=== PATIENT | female | born 1995 | race Caucasian/White ===

== ENCOUNTER → 2021-10-29 09:24 | Outpatient (CLI) | payer MEDICARE, SELFPAY | LOC: PSN 09:31 | DX: R11.2 Nausea with vomiting, unspecified (principal); R19.7 Diarrhea, unspecified; J06.9 Acute upper respiratory infection, unspecified; Z20.822 Contact with and (suspected) exposure to COVID-19 | CPT/HCPCS: 87426; 87804; 87807; C9803 ==

== ENCOUNTER 2023-08-14 12:37 | Emergency (ER) | payer OTHER, SELFPAY ==
[2023-08-14 12:38] VITALS: BP 150/109; PULSE 93; RESP 14; TEMP 36.8; O2SAT 96; BMI 49.1
--- NOTE | 2023-08-14 12:46 | ED.VIS.FEGU ---
HPI <TRACY Yancey - Last Filed: 08/14/23 13:55> HPI - Female History of Present Illness Chief Complaint: Vag Bleeding Narrative Narrative: 28-year-old female states she had BV in June and was scratching her vagina and thinks she may have caused a cut. Over the last 3 days she has had bleeding which became heavier yesterday and she is changing her pad 4 times a day. No clots. She states it does not smell like her usual. And smells like iron. Her looked at the area and saw a cut. She states she is not due to start her menstrual cycle for another 3 to 4 days and she is typically regular. She is not on control. She is also having pain with urination. PFSH <TRACY Yancey - Last Filed: 08/14/23 13:55> PFSH Allergy/AdvReac Type Severity Reaction Status Date / Time No Known Allergies Allergy Verified 08/14/23 12:38 Social History Smoking Status: Never smoker ROS <TRACY Yancey - Last Filed: 08/14/23 13:55> ROS ED ROS Narrative Constitutional: Negative for fever, chills, malaise. CVS: Negative for chest pain, syncope. Respiratory: Negative for shortness of breath. GI: Negative for abdominal pain, nausea, vomiting. : Positive for dysuria. EXAM <TRACY Yancey - Last Filed: 08/14/23 13:55> Physical Exam Narrative Exam Narrative: CONST: Patient sitting in no acute distress. EYES: Normal inspection. NECK: Normal inspection. RESP: No respiratory distress, CTAB. CVS: Regular rate and rhythm, no murmur, no gallop. ABD: Soft and nontender, no guarding or rebound. Pelvic: Normal external genitalia, on right inner lower labia there is a very superficial 1 cm scratch, no lacerations. Normal vaginal vault with small amount of bright red blood, normal cervical os, no clots. No rashes or lesions noted. SKIN: Color normal, no rash, warm, dry, intact. EXTREMITIES: Normal appearance, no pedal edema. NEURO: Oriented x4. PSYCH: Normal affect. Const Vital Signs: 08/14/23 12:38 Temperature 98.3 F Temperature Source Temporal Pulse Rate 93 Respiratory Rate 14 Blood Pressure 150/109 H Blood Pressure Mean 122 Pulse Ox 96 Oxygen Delivery Method Room Air <Dr. Jack De Oliveira DO - Last Filed: 08/14/23 15:40> Physical Exam Const Vital Signs: 08/14/23 12:38 Temperature 98.3 F Temperature Source Temporal Pulse Rate 93 Respiratory Rate 14 Blood Pressure 150/109 H Blood Pressure Mean 122 Pulse Ox 96 Oxygen Delivery Method Room Air [facility] <TRACY Yancey - Last Filed: 08/14/23 13:55> [facility] Narrative Medical decision making narrative: History gathered from: Patient and spouse Patient was concerned for abnormal vaginal bleeding. She appears well and nontoxic. Vital signs stable. Abdomen soft and nontender. Pelvic and pelvic exam she has a 1 cm superficial abrasion in the right inner labia That is closed and too small to be bleeding the amount she is reporting. She does have bright red blood in the vaginal vault with a normal cervical os. No clots. There is no hemorrhaging. UA has no evidence of infection and test is negative. Her LMP was July 15 so I suspect this is either normal menstrual cycle or dysfunctional uterine bleeding. I provided an TRANSIT VEHICLE INSPECTOR referral and she was discharged in stable condition. Lab Data Attestation: I reviewed the patient's lab results. Labs: Laboratory Results - last 24 hr 08/14/23 13:17 Urine Color Yellow Urine Clarity Sl. Cloudy Urine pH 6.0 Ur Specific [place] 1.025 Urine Protein 30 H Urine Glucose (UA) Normal Urine Ketones 5 H Urine Occult Blood 250 H Urine Nitrite Negative Urine Bilirubin Negative Urine Urobilinogen 1 H Ur Leukocyte Esterase 25 H Urine RBC > 100 SEEN Urine WBC 0 SEEN Ur Squamous Epith Cells 0 SEEN Urine Bacteria 0 SEEN Urine Mucus 0 SEEN Urine Test Negative <Dr. Jack De Oliveira, - Last Filed: 08/14/23 15:40> [facility] Narrative Medical decision making narrative: History gathered from: Patient and spouse Patient was concerned for abnormal vaginal bleeding. She appears well and nontoxic. Vital signs stable. Abdomen soft and nontender. Pelvic and pelvic exam she has a 1 cm superficial abrasion in the right inner labia That is closed and too small to be bleeding the amount she is reporting. She does have bright red blood in the vaginal vault with a normal cervical os. No clots. There is no hemorrhaging. UA has no evidence of infection and test is negative. Her LMP was July 15 so I suspect this is either normal menstrual cycle or dysfunctional uterine bleeding. I provided an TRANSIT VEHICLE INSPECTOR referral and she was discharged in stable condition. Attending note: Patient seen and evaluated with global account director. I perform my own [id number] evaluation. I agree with the plan of work-up. Concerns for vaginal bleeding starting yesterday. Recent BV states she is scratching had an abrasion. States had burning where the injury is when she urinates. Denies any discharge. Her last menstrual period was the end of June, she states her calendar tells her she is due in a few days and not yesterday. However she states she has normal periods monthly. Examined by global account director blood in the vault, is abrasion reported externally there is no active bleeding. hCG obtained negative urine with 25 leukocytes with blood however she is having vaginal bleeding. She is reassured to monitor the bleeding outpatient follow-up given with gynecology. Lab Data Labs: Laboratory Results - last 24 hr 08/14/23 13:17 Urine Color Yellow Urine Clarity Sl. Cloudy Urine pH 6.0 Ur Specific [place] 1.025 Urine Protein 30 H Urine Glucose (UA) Normal Urine Ketones 5 H Urine Occult Blood 250 H Urine Nitrite Negative Urine Bilirubin Negative Urine Urobilinogen 1 H Ur Leukocyte Esterase 25 H Urine RBC > 100 SEEN Urine WBC 0 SEEN Ur Squamous Epith Cells 0 SEEN Urine Bacteria 0 SEEN Urine Mucus 0 SEEN Urine Test Negative Discharge Plan Triage Chief Complaint: Vag Bleeding ED Midlevel Provider: Lilliam Guthrie ED Provider: Jack De Oliveira Dx/Rx/DC Orders Clinical Impression: Dysfunctional uterine bleeding Instructions: ED Dysfunctional Uterine Bleeding Primary Care Provider: Jaja Poe NP Referrals: Elva Ngo DO [Med Staff - Active Staff] - Jaja Poe NP, TEACHER EDUCATION DIRECTOR-C [Primary Care Provider] - Activity Restrictions/Additional Instructions: Your urine shows no evidence of a urinary tract infection and test is negative. This is either your regular menstrual cycle or dysfunctional uterine bleeding which is when you have abnormal periods. Please follow-up with TRANSIT VEHICLE INSPECTOR. Disposition Disposition: Home, Self Care Discharge Date/Time: 08/14/23 13:57
[2023-08-14 13:21] LABS: Bacteria 0 SEEN /hpf (None Seen); Mucous, Urine 0 SEEN /hpf (<or=2+); Squamous Epithelial Cells - UA 0 SEEN /hpf (5-10); White Blood Cells 0 SEEN /hpf (0-5)
[2023-08-14 13:26] LABS: Color, Urine Yellow (Yellow); Glucose, Dipstick Normal (Normal); Ketone-Dipstick 5 mg/dl (Negative); Leukocyte Esterase-Dipstick 25 /ul (Negative); Nitrite-Dipstick Negative (Negative); Occult Blood-Urine 250 /ul (Negative); Protein-Dipstick 30 mg/dl (Negative); Specific Gravity, Urine 1.025 (1.002-1.030); Urine Bilirubin Dipstick Negative (Negative); Urine Clarity Sl. Cloudy (Clear); Urine Urobilinogen 1 mg/dl (Normal)
--- OUTSIDE RECORDS SUMMARY | 2023-08-14 13:31 | XMS RPT_ITS | CCD ---
Author Name Unknown Address [address] [place] [address] Organization [facility] Care Team Providers Care Finance Lecturer Name Role Phone Unavailable Primary Care Provider River Pierce MD, Milli Maynard Primary Care Provider Unavailable Primary Care Provider LILLIAM Lowe Attending Unavailable SHAGGY WILSON Attending Unavailable MILLI PIERCE Primary Care Unavailable AUDREY BRYANT Attending Unavailable MILLI PIERCE Primary Care Unavailable AUDREY BRYANT Attending Unavailable MILLI PIERCE Primary Care Unavailable Medications Current Medications Medication Drug Class(es) Dates Sig (Normalized) Sig (Original) amoxicillin 875 mg oral tablet (1 source) Penicillin-class Antibacterial Start: 06-08-2023 End: 06-18-2023 take 1 tablet by mouth twice daily amoxicillin (AMOXIL) 875 mg tablet Indications: Dysuria Take 1 tablet by mouth two times a day for 10 days. 20 tablet 0 06/08/2023 06/18/2023 Active Completed/Discontinued Medications Medication Drug Class(es) Dates Sig (Normalized) Sig (Original) benzonatate 100 mg oral capsule (1 source) Non-narcotic Antitussive Start: 09-27-2022 End: 06-08-2023 take 2 capsules by mouth every eight hours as needed for cough and cough benzonatate (TESSALON PERLES) 100 mg capsule Indications: Subacute cough Take 2 capsules by mouth three times daily as needed for cough. 30 capsule 0 09/27/2022 06/08/2023 Discontinued Problems Active Problems Problem Classification Problem Date Documented Date Episodic/Chronic Anxiety disorders (11 sources) Anxiety; Translations: [Anxiety disorder, unspecified] Onset: 07-03-2020 05-31-2022 Chronic Bacterial infection; unspecified site (2 sources) Other specified bacterial agents as the cause of diseases classified elsewhere; Translations: [Other specified bacterial agents as the cause of diseases classified elsewhere] Onset: 07-28-2023 Episodic Chronic obstructive pulmonary disease and bronchiectasis (1 source) Bronchitis, not specified as acute or chronic; Translations: [Sinobronchitis] Onset: 06-08-2023 Episodic Diabetes or abnormal glucose tolerance complicating ; childbirth; or the puerperium (9 sources) History of gestational diabetes mellitus; Translations: [Personal history of gestational diabetes] Onset: 12-01-2017 05-31-2022 Episodic Genitourinary symptoms and ill-defined conditions (2 sources) Dysuria; Translations: [Dysuria] Onset: 06-08-2023 06-08-2023 Episodic Immunizations and screening for infectious disease (12 sources) Patient encounter status; Translations: [Encounter for screening for human immunodeficiency virus [HIV]] Onset: 07-28-2023 07-28-2023 Episodic Inflammatory diseases of female pelvic organs (3 sources) Bacterial vaginosis; Translations: [Acute vaginitis] Onset: 07-28-2023 07-28-2023 Episodic Mood disorders (15 sources) Depressive disorder; Translations: [Depression] Onset: 12-01-2017 05-31-2022 Chronic Mood disorders (7 sources) Mood disorders; Translations: [Depression, unspecified] Onset: 05-31-2022 Resolved: 07-28-2023 06-01-2023 Other nutritional; endocrine; and metabolic disorders (7 sources) Body mass index 40+ - severely obese; Translations: [Body mass index (BMI) 50.0-59.9, adult] Onset: 08-18-2021 05-31-2022 Chronic Other nutritional; endocrine; and metabolic disorders (2 sources) Morbid (severe) obesity due to excess calories; Translations: [Morbid (severe) obesity due to excess calories (HCC)] Onset: 07-28-2023 Chronic Other nutritional; endocrine; and metabolic disorders (2 sources) Body mass index (BMI) 45.0-49.9, adult; Translations: [Body mass index (BMI) 45.0-49.9, adult (HCC)] Onset: 07-28-2023 Chronic Other screening for suspected conditions (not mental disorders or infectious disease) (8 sources) Encounter for screening for malignant neoplasm of cervix; Translations: [Encounter for screening for diabetes mellitus] Onset: 07-28-2023 Episodic Other upper respiratory infections (2 sources) Chronic sinusitis; Translations: [Chronic sinusitis, unspecified] Onset: 06-08-2023 06-08-2023 Chronic Unclassified (1 source) Subacute cough; Translations: [Subacute cough] Onset: 09-27-2022 Past or Other Problems Problem Classification Problem Date Documented Da te Episodic/Chronic Menstrual disorders (6 sources) Irregular periods; Translations: [Irregular menstruation, unspecified] Onset: 12-01-2017 Resolved: 07-28-2023 05-31-2022 Chronic Nonmalignant breast conditions (6 sources) Abscess of breast; Translations: [Abscess of the breast and nipple] Onset: 06-25-2022 Resolved: 07-28-2023 06-25-2022 Episodic Other upper respiratory infections (1 source) Acute upper respiratory infection, unspecified; Translations: [Viral upper respiratory tract infection] Onset: 09-27-2022 Episodic Results Test Name Value Interpretation Reference Range Facil ity Vital Signs Date Time Vital Sign Value Performing Clinician Faci lity 07-28-2023 09:44-0500 Body height 170.2 cm Audrey Bryant APRN [employer] Work Phone: [facility] 07-28-2023 09:44-0500 Body mass index (BMI) [Ratio] 49.49 kg/m2 Audrey Bryant EQUITY STRUCTURER [employer] Work Phone: [facility] 07-28-2023 09:44-0500 Body weight 143.34 kg Audrey Bryant EQUITY STRUCTURER [employer] Work Phone: [facility] 07-28-2023 09:44-0500 Diastolic blood pressure 70 mm[Hg] Audrey Bryant EQUITY STRUCTURER [employer] Work Phone: [facility] 07-28-2023 09:44-0500 Heart rate 70 /min Audrey Bryant EQUITY STRUCTURER [employer] Work Phone: [facility] 07-28-2023 09:44-0500 SaO2% (BldA) [Mass fraction] 97 % Audrey Bryant EQUITY STRUCTURER - CUTTING ROOM SUPERVISOR Work Phone: [facility] [employer] 07-28-2023 09:44-0500 Systolic blood pressure 116 mm[Hg] Audrey Bryant EQUITY STRUCTURER - CUTTING ROOM SUPERVISOR Work Phone: [facility] [employer] 07-28-2023 09:43-0500 Body height 170.2 cm Audrey Bryant EQUITY STRUCTURER - CUTTING ROOM SUPERVISOR Work Phone: [facility] [employer] 07-28-2023 09:43-0500 Body mass index (BMI) [Ratio] 49.49 kg/m2 Audrey Bryant EQUITY STRUCTURER - CUTTING ROOM SUPERVISOR Work Phone: [facility] [employer] 07-28-2023 09:43-0500 Body weight 143.34 kg Audrey Bryant EQUITY STRUCTURER - CUTTING ROOM SUPERVISOR Work Phone: [facility] [employer] 07-28-2023 09:43-0500 Diastolic blood pressure 70 mm[Hg] Audrey Bryant EQUITY STRUCTURER - CUTTING ROOM SUPERVISOR Work Phone: [facility] [employer] 07-28-2023 09:43-0500 Heart rate 70 /min Audrey Bryant EQUITY STRUCTURER - CUTTING ROOM SUPERVISOR Work Phone: [facility] [employer] 07-28-2023 09:43-0500 SaO2% (BldA) [Mass fraction] 97 % Audrey Bryant EQUITY STRUCTURER - CUTTING ROOM SUPERVISOR Work Phone: [facility] [employer] 07-28-2023 09:43-0500 Systolic blood pressure 116 mm[Hg] Audrey Bryant EQUITY STRUCTURER - CUTTING ROOM SUPERVISOR Work Phone: [facility] 06-08-2023 15:29-0400 Body temperature 97.7 [degF] Lilliam Shepherd DO Work Phone: [facility] 06-08-2023 15:29-0400 Diastolic blood pressure 91 mm[Hg] Lilliam Shepherd DO Work Phone: [facility] 06-08-2023 15:29-0400 Heart rate 99 /min Lilliam Shepherd DO Work Phone: [facility] 06-08-2023 15:29-0400 Respiratory rate 20 /min Lilliam Shepherd DO Work Phone: [facility] 06-08-2023 15:29-0400 SaO2% (BldA) [Mass fraction] 97 % Lilliam Shepherd DO Work Phone: [facility] 06-08-2023 15:29-0400 Systolic blood pressure 148 mm[Hg] Lilliam Shepherd DO Work Phone: [facility] 06-01-2023 14:05-0400 Body mass index (BMI) [Ratio] 51.33 kg/m2 Shaggy Bridenthal EQUITY STRUCTURER - CUTTING ROOM SUPERVISOR Work Phone: [facility] 06-01-2023 14:05-0400 Body temperature 97.7 [degF] Shaggy Bridenthal EQUITY STRUCTURER - CUTTING ROOM SUPERVISOR Work Phone: [facility] 06-01-2023 14:05-0400 Body weight 144.24 kg Shaggy Bridenthal EQUITY STRUCTURER - CUTTING ROOM SUPERVISOR Work Phone: [facility] 06-01-2023 14:05-0400 Diastolic blood pressure 81 mm[Hg] Shaggy Bridenthal EQUITY STRUCTURER - CUTTING ROOM SUPERVISOR Work Phone: [facility] 06-01-2023 14:05-0400 Heart rate 86 /min Shaggy Bridenthal EQUITY STRUCTURER - CUTTING ROOM SUPERVISOR Work Phone: [facility] 06-01-2023 14:05-0400 Respiratory rate 18 /min Shaggy Bridenthal EQUITY STRUCTURER - CUTTING ROOM SUPERVISOR Work Phone: [facility] 06-01-2023 14:05-0400 SaO2% (BldA) [Mass fraction] 98 % Shaggy Bridenthal EQUITY STRUCTURER - CUTTING ROOM SUPERVISOR Work Phone: [facility] 06-01-2023 14:05-0400 Systolic blood pressure 115 mm[Hg] Shaggy Bridenthal EQUITY STRUCTURER - CUTTING ROOM SUPERVISOR Work Phone: [facility] Encounters Encounter Date Encounter Type Care Provider Facility Start: 07-28-2023 End: 07-28-2023 [facility] Start: 07-28-2023 End: 07-28-2023 Encounter for gynecological examination (general) (routine) without abnormal findings [facility] Start: 07-28-2023 End: 07-28-2023 Patient encounter status Audrey Bryant EQUITY STRUCTURER - CUTTING ROOM SUPERVISOR Work Phone: [facility] Work Phone: Start: 07-28-2023 End: 07-28-2023 Periodic preventive med est patient 18-39 yrs Audrey Bryant EQUITY STRUCTURER - CUTTING ROOM SUPERVISOR Work Phone: [facility] Procedures Date Procedure Procedure Detail Performing Clinician Start: 06-08-2023 Urnls dip stick/tabl et rgnt auto w/o microscopy Lilliam Shepherd DO Work Phone: Plan of Treatment Date Care Activity Detail Author Start: 2055 RSV Immunization age d 60 or older (1 - 1-dose 60+ series) RSV Immunization aged 60 or older (1 - 1-dose 60+ series) [facility] Start: 2045 Zoster Vaccines (1 of 2) Zoster Vacc gaurav (1 of 2) [facility] Start: 01-01-2025 DTaP/Tdap/Td Vaccine s (3 - Td or Tdap) DTaP/Tdap/Td Vaccines (3 - Td or Tdap) [facility] Start: 01-01-2025 Urine microalbumin profile DTaP,Tdap,Td Vaccine (3 - Td or Tdap) [facility] Start: 06-01-2024 COVID-19 Vaccine ( season) COVID-19 Vaccine ( season) [facility] Immunizations Immunization Date Immunization Notes Care Provider Fa cility 06-21-2023 influenza, seasonal, injectable Audrey Lui EQUITY STRUCTURER - CUTTING ROOM SUPERVISOR Work Phone: [facility] 12-26-2018 Human Papillomavirus 9-valent vaccine Echo Muir RN [facility] 11-08-2018 tuberculin skin test ; purified protein derivative solution, intradermal Echo Muir RN [facility] 06-26-2018 Influenza, injectabl e, Madin Keren Canine Kidney, preservative free, quadrivalent [facility] 06-26-2018 influenza virus vacc ine, unspecified formulation [facility] 12-07-2017 tuberculin skin test ; purified protein derivative solution, intradermal [facility] 12-01-2017 tuberculin skin test ; purified protein derivative solution, intradermal [facility] 01-08-2015 tuberculin skin test ; purified protein derivative solution, intradermal [facility] 01-01-2015 tetanus toxoid, redu neena diphtheria toxoid, and acellular pertussis vaccine, adsorbed [facility] 01-01-2015 tuberculin skin test ; purified protein derivative solution, intradermal [facility] 01-26-2012 hepatitis B vaccine, adult dosage [facility] 12-25-2011 hepatitis B vaccine, adult dosage [facility] 12-25-2011 tetanus toxoid, redu neena diphtheria toxoid, and acellular pertussis vaccine, adsorbed [facility] 11-16-2011 human papilloma viru s vaccine, quadrivalent [facility] 10-15-2011 human papilloma viru s vaccine, bivalent [facility] 06-19-2009 novel Influenza-H1N1 -09, live virus for nasal administration [facility] Payers Date Payer Category Payer Private Health Insurance [id number] 2021 Unknown [id number] Social History Date Type Detail Facility Tobacco smoking stat [facility] Tobacco smoking consumption unknown [facility] Start: 1995 Sex Assigned At Not on file C [facility] Start: 09-27-2022 Tobacco smoking stat [facility] Never smoked tobacco [facility] Start: 08-04-2022 End: 07-28-2023 Alcohol intake Current drinker of alcohol (finding) [facility] Start: 08-04-2022 End: 07-28-2023 History of Social function [facility] Start: 08-04-2022 End: 07-28-2023 Tobacco use panel [facility] Adolescent depressio n screening assessment 11 [facility] Start: 09-27-2022 Tobacco use and exposure Smoke less tobacco non-user [facility] How hard is it for y ou to pay for the very basics like food, housing, medical care, and heating Not very hard [facility] (I/We) worried wheth er (my/our) food would run out before (I/we) got money to buy more. Never true [facility] [employer] In the past 12 month s, was there a time when you were not able to pay the mortgage or rent on time? No [facility] Clinical Notes 01-13-2022 to 07-28-2023 Sonia Kelly MA - 07/28/2023 10:00 AM MARINA Plummer CNP - 07/28/2023 10:00 AM MARINA Plummer CNP - 07/28/2023 9:40 AM ESTSleonides Kelly MA - 07/28/2023 9:40 AM EST Note Date & Type Note Facility 07-28-2023 History of Present illness Narrative Formatting of this note might be differe nt from the original. Patient was verified by name and . Images from the original note were not included. [facility] [address] [place] [id number] Dept: [phone] Dept Loc: [phone] HPI: Eric Roblero is a 28 y.o. female who presents today for her medical conditions/complaints as noted below. Eric Roblero is c/o of Annual Exam, Gynecologic Exam, Health Maintenance (HIV Screening-agrees/MMR Vaccines-done in school/Varicella Vaccines-had chicken pox as a child/Hepatitis B Vaccines-declines/Hepatitis C Screening-agrees/Influenza Vaccine-done at work around 06/21/23/COVID-19 Vaccine #3-only 2 /), and Blood Work HPI- Eric Roblero presents today for her well female examination. LMP was 07/14/23. Is currently trying to conceive. Has a history of gestational diabetes- will a hemoglobin A1c today as part of her blood work today. Does have concerns of vaginal irritation and discharge with odor. States she has had BV in the past and symptoms are similar to that. Health Maintenance: Performs self breast examinations; denies nipple discharge, nodules, or discoloration. Positive family history of breast cancer- maternal aunt in her 50's. Last mammogram was: N/A. Last pap smear was about 2 years ago. Declines screening for STI's. Would like screening for HIV and Hep C. States she was vaccinated for MMR as a child. States she had chickenpox as a child. We have two doses of the Hep B recorded for 12/25/11 and 01/26/12- would like a final dose and will get at local pharmacy. States she received a flu vaccination through work on 06/21/23. Vaccinated for COVID-19 x2 with her most recent dose on 09/23/21- declines additional doses. Tdap is current: 01/01/15. Is fully vaccinated for HPV. See ROS for additional information. Past Medical History: Diagnosis Date Abscess of right axilla 07/30/2021 Abscess of right breast 06/25/2022 Irregular periods 12/01/2017 Past Surgical History: Procedure Laterality Date SECTION (HISTORICAL) 2016 DILATION AND CURETTAGE OF UTERUS 2015 TONSILLECTOMY (HISTORICAL) WISDOM TOOTH EXTRACTION 2013 Family History Problem Relation Name Age of Onset Mental illness Mother Diabetes Mother No Known Problems Father Mental illness Sister Breast cancer Mother's Sister 50 Social History Tobacco Use Smoking status: Never Smokeless tobacco: Never Substance Use Topics Alcohol use: Yes E-cigarette/Vaping Questions Responses E-cigarette/Vaping Use Current Every Day User E-cigarette/Vaping Substances Questions Responses Nicotine Yes E-cigarette/Vaping Devices Questions Responses Disposable Yes Current Outpatient Medications Medication Sig Dispense Refill hydrOXYzine HCl (Atarax) 10 MG tablet Take 1 tablet (10 mg) by mouth every 8 hours as needed for anxiety for up to 10 days. 30 tablet 0 metroNIDAZOLE (Flagyl) 500 MG tablet Take 1 tablet (500 mg) by mouth 2 times daily for 7 days. *Do not consume alcohol while taking* 14 tablet 0 sertraline (Zoloft) 50 MG tablet Take 1 tablet (50 mg) by mouth daily. 90 tablet 1 No current facility-administered medications for this visit. No Known Allergies Health Maintenance Topic Date Due Lipid Panel Never done HIV Screening Never done Hepatitis B Vaccines (3 of 3 - 3-dose series) 04/15/2012 Hepatitis C Screening Never done Diabetes Screening Never done Pap Smear Never done COVID-19 Vaccine (3 - 2022-24 season) 2024 (Originally 04/16/2023) Depresssion Monitoring 12/01/2023 DTaP/Tdap/Td Vaccines (3 - Td or Tdap) 01/01/2025 Zoster Vaccines (1 of 2) 2045 RSV Immunization aged 60 or older (1 - 1-dose 60+ series) 2055 Influenza Vaccine Completed HPV Vaccines Completed RSV Immunization under 20 Months Aged Out HIB Vaccines Aged Out IPV Vaccines Aged Out Hepatitis A Vaccines Aged Out Meningococcal Vaccine Aged Out Rotavirus Vaccines Aged Out Pneumococcal Vaccine: Pediatrics (0 to 5 Years) and At-Risk Patients (6 to 64 Years) Aged Out MMR Vaccines Discontinued Varicella Vaccines Discontinued Subjective: Review of Systems Constitutional: Negative for chills and fever. HENT: Negative for hearing loss and trouble swallowing. Eyes: Negative for pain and visual disturbance. Respiratory: Negative for cough, chest tightness, shortness of breath and wheezing. Cardiovascular: Negative for chest pain, palpitations and leg swelling. Gastrointestinal: Negative for abdominal distention, abdominal pain, blood in stool, constipation and diarrhea. Endocrine: Negative for polydipsia, polyphagia and polyuria. Genitourinary: Positive for vaginal discharge. Negative for dyspareunia, dysuria, hematuria, menstrual problem, pelvic pain, vaginal bleeding and vaginal pain. Musculoskeletal: Negative for arthralgias and myalgias. Skin: Negative for color change, pallor, rash and wound. Neurological: Negative for dizziness, syncope, weakness and headaches. Hematological: Does not bruise/bleed easily. Objective: BP 116/70 Pulse 70 Ht 5' 7 (1.702 m) Wt (!) 316 lb (143 kg) LMP 07/14/2023 (Exact Date) SpO2 97% BMI 49.49 kg/m Physical Exam Constitutional: Oriented to person, place, and time. Appears well-developed and well-nourished. No distress. HENT: Head: Normocephalic and atraumatic. Right Ear: External ear normal. Left Ear: External ear normal. Nose: Nose normal. Mouth/Throat: Oropharynx is clear and moist. No oropharyngeal exudate. Bilateral TM's pearly love with a good cone of light bilaterally. Eyes: Conjunctivae and EOM are normal. Pupils are equal, round, and reactive to light. Right eye exhibits no discharge. Left eye exhibits no discharge. Neck: Normal range of motion. Neck supple. No thyromegaly present. Cardiovascular: Normal rate, regular rhythm, normal heart sounds and intact distal pulses. Exam reveals no friction rub. No murmur heard. Carotid upstrokes brisk and without bruits bilaterally. Pulmonary/Chest: Effort normal and breath sounds normal. No respiratory distress. No wheezes. No rales. Breast Examination: Bilateral breast symmetrical and smooth without masses. Free from discoloration, thickening of the skin, and prominent pores. Nipples without discharge,asymmetry, ulcerations, rashes, and inversions bilaterally. Both nipples pierced. Breasts free from dimpling and retractions. Tail of [place] palpated bilaterally and free from axillary lymphadenopathy. Abdominal: Soft. Bowel sounds are normal. No distension and no mass. There is no hepatosplenomegaly. There is no tenderness. Protuberant abdomen impairing examination. Pelvic Examination: There is no rash, tenderness, or lesion on the right labia. There is no rash, tenderness or lesion on the left labia. Urethra without swelling or lesion. Rectum negative for external hemorrhoid, lesions, or abnormal tone. Vagina with normal rugae. Thin, white, odorous discharge noted in vaginal canal. Uterus normal size, shape, and consistency; non tender to compression. Cervix exhibits no motion tenderness, no discharge, and no friability. Right adnexum displays no mass, no tenderness and no fullness. Left adnexum displays no mass, no tenderness and no fullness. Pap smear obtained. Musculoskeletal: Normal range of motion. No edema, tenderness or deformity. Strength 5/5 with flexion and extension of extremities x4. Lymphadenopathy: No cervical adenopathy. Neurological: Alert and oriented to person, place, and time.Normal reflexes. Coordination normal. Skin: Skin is warm and dry. No rash noted. No erythema. No pallor. Psychiatric: Normal mood and affect. Behavior is normal. Judgment and thought content normal. Assessment and Plan: 1. Well female exam with routine gynecological exam - Encouraged a healthy diet low in cholesterol and saturated fats. - Encouraged regular exercise. 2. Morbid obesity with BMI of 45.0-49.9, adult (HCC) - CBC - Comprehensive metabolic panel - Encouraged a healthy diet and regular exercise. 3. History of gestational diabetes - CBC - Comprehensive metabolic panel - Hemoglobin A1c - Will notify of blood work results. 4. Encounter for Papanicolaou smear for cervical cancer screening - Pap Smear 5. Bacterial vaginosis - CBC - metroNIDAZOLE (Flagyl) 500 MG tablet; Take 1 tablet (500 mg) by mouth 2 times daily for 7 days. *Do not consume alcohol while taking*, Starting Wed07/28/2023, Until Wed08/04/2023, Normal 6. Screening for diabetes mellitus - Comprehensive metabolic panel - Will notify of blood work results. 7. Screening for lipoid disorders - Lipid panel - Will notify of blood work results. 8. Screening for deficiency anemia - CBC - Will notify of blood work results. 9. Screening for HIV (human immunodeficiency virus) - HIV-1 and HIV-2 Antigen-Antibody Screen - Will notify of blood work results. 10. Need for hepatitis C screening test - Hepatitis C antibody - Will notify of blood work results. Eric received counseling on the following healthy behaviors: continue current medications Patient given educational materials on: pap smears Discussed use, benefit, and side effects of prescribed medications. Barriers to medication compliance addressed. All patient questions answered. Pt voiced understanding. Follow Up: Follow up in about 6 months (around 01/27/2024) for medication maintenance. Orders Placed This Encounter Procedures CBC Standing Status: Future Number of Occurrences: 1 Standing Expiration Date: 07/28/2024 Lipid panel Standing Status: Future Number of Occurrences: 1 Standing Expiration Date: 07/28/2024 Comprehensive metabolic panel Standing Status: Future Number of Occurrences: 1 Standing Expiration Date: 07/28/2024 HIV-1 and HIV-2 Antigen-Antibody Screen Standing Status: Future Number of Occurrences: 1 Standing Expiration Date: 07/28/2024 Hepatitis C antibody Standing Status: Future Number of Occurrences: 1 Standing Expiration Date: 07/28/2024 Hemoglobin A1c Standing Status: Future Number of Occurrences: 1 Standing Expiration Date: 07/28/2024 MARINA Balderas CNP 07/28/2023 10:27 AM documented in this encounter [facility] 07-28-2023 History of Present illness Narrative Formatting of this note is different fro m the original. Images from the original note were not included. 07/28/2023 Eric Roblero (: 1995) is a 28 y.o. female , Established patient, here for evaluation of the following chief complaint(s): Depression, Anxiety (8 week follow up), Health Maintenance (HIV Screening-agrees/MMR Vaccines-done in school/Varicella Vaccines-had chicken pox as a child/Hepatitis B Vaccines- declines/Hepatitis C Screening-agrees/Influenza Vaccine-already had this at work around 06/21/23/COVID-19 Vaccine #3-only had 2 //), and Blood Work ASSESSMENT/PLAN: 1. Mild episode of recurrent major depressive disorder (HCC) - sertraline (Zoloft) 50 MG tablet; Take 1 tablet (50 mg) by mouth daily., Starting 07/28/2023, Normal - Improved. Continue current dose of Sertraline. 2. Anxiety - sertraline (Zoloft) 50 MG tablet; Take 1 tablet (50 mg) by mouth daily., Starting Wed07/28/2023, Normal - Improved. Continue current dose of Sertraline and Hydroxyzine as needed. Follow up in about 6 months (around 01/27/2024) for medication maintenance. SUBJECTIVE/OBJECTIVE: HPI Jesus Alberto Mckeon presents today for follow up on her depression and anxiety. She was started on Sertraline on 06/01/23 and states she has noticed feeling less anxious. Has not needed to take her PRN Hydroxyzine. Feels the current dose of the Sertraline is working well for her and would like to continue taking it. Denies suicidal ideations. Review of Systems Psychiatric/Behavioral: Positive for dysphoric mood. Negative for self-injury and suicidal ideas. The patient is nervous/anxious. Vitals: 07/28/23 0943 BP: 116/70 Pulse: 70 SpO2: 97% Weight: (!) 316 lb (143 kg) Height: 5' 7 (1.702 m) Body mass index is 49.49 kg/m . Last 3 NATAN-7 Scores 07/28/2023 1000 06/01/2023 1400 NATAN-7 Total Score: 9 17 Last 3 PHQ-2 Scores 07/28/2023 1008 06/01/2023 1401 Patient Health Questionnaire-2 Score: 1 2 Last 3 PHQ-9 Scores 07/28/2023 1008 06/01/2023 1401 Patient Health Questionnaire-9 Score: 7 11 Physical Exam Constitutional: General: She is not in acute distress. Appearance: She is not ill-appearing or diaphoretic. Cardiovascular: Rate and Rhythm: Normal rate and regular rhythm. Heart sounds: Normal heart sounds. Pulmonary: Effort: Pulmonary effort is normal. Skin: General: Skin is warm and dry. Coloration: Skin is not pale. Findings: No erythema. Neurological: Mental Status: She is alert and oriented to person, place, and time. Psychiatric: Mood and Affect: Mood normal. Behavior: Behavior normal. Thought Content: Thought content normal. Judgment: Judgment normal. An electronic signature was used to authenticate this note. MARINA Balderas CNP 07/28/2023 10:20 AM Patient was verified by name and . documented in this encounter [facility] 06-08-2023 Note HNO ID: [id number] Author: Lilliam Shepherd DO Service: ? Author Type: Physician Type: Progress Notes Filed: 06/08/2023 4:00 PM Note Text: Eric Roblero is a 27 year old FEMALE who presents with UTI (Painful urination, frequency this am) HPI History reviewed. No pertinent past medical history. There is no problem list on file for this patient. Current Outpatient Medications Medication Sig Dispense Refill sertraline (ZOLOFT) 50 mg tablet Take 50 mg by mouth. hydrOXYzine HCl (ATARAX) 10 mg tablet Take 10 mg by mouth three times a day as needed. phenazopyridine (PYRIDIUM) 200 mg tablet Take 1 tablet by mouth three times a day as needed for pain for up to 2 days. 6 tablet 0 amoxicillin (AMOXIL) 875 mg tablet Take 1 tablet by mouth two times a day for 10 days. 20 tablet 0 No current facility-administered medications for this visit. Social History Tobacco Use Smoking status: Never Smokeless tobacco: Never Vaping Use Vaping Use: current everyday user Substance Use Topics Alcohol use: Yes Drug use: Not Currently Alcohol Use: Yes Tobacco Use: Never History reviewed. No pertinent family history. Review of Systems Constitutional: Positive for chills, fever and malaise/fatigue. HENT: Positive for congestion, sinus pain and sore throat. Respiratory: Positive for cough and sputum production. Genitourinary: Positive for dysuria, frequency and urgency. All other systems reviewed and are negative. BP 148/91 Pulse 99 Temp 97.7 Resp 20 SpO2 97% Physical Exam Vitals and nursing note reviewed. HENT: Head: Normocephalic. Right Ear: Tympanic membrane normal. Left Ear: Tympanic membrane normal. Nose: Congestion and rhinorrhea present. Mouth/Throat: Pharynx: Posterior oropharyngeal erythema present. Eyes: Extraocular Movements: Extraocular movements intact. Pupils: Pupils are equal, round, and reactive to light. Cardiovascular: Rate and Rhythm: Normal rate and regular rhythm. Pulses: Normal pulses. Heart sounds: Normal heart sounds. Pulmonary: Effort: Pulmonary effort is normal. Breath sounds: Normal breath sounds. Musculoskeletal: General: Normal range of motion. Cervical back: Normal range of motion. Skin: General: Skin is warm. Capillary Refill: Capillary refill takes 2 to 3 seconds. Neurological: General: No focal deficit present. Psychiatric: Mood and Affect: Mood normal. ASSESSMENT/PLAN: 1. Dysuria - ICD9: 788.1, ICD10: R30.0 (primary diagnosis) - URINALYSIS, DIPSTICK ONLY - PHENAZOPYRIDINE 200 MG TABLET - AMOXICILLIN 875 MG TABLET - URINE CULTURE 2. Sinobronchitis - ICD9: 473.9, 490, ICD10: J32.9, J40 Lilliam [facility] 06-08-2023 History of Present illness Narrative Formatting of this note is different fro m the original. Eric Roblero is a 27 year old FEMALE who presents with UTI (Painful urination, frequency this am) HPI History reviewed. No pertinent past medical history. There is no problem list on file for this patient. Current Outpatient Medications Medication Sig Dispense Refill sertraline (ZOLOFT) 50 mg tablet Take 50 mg by mouth. hydrOXYzine HCl (ATARAX) 10 mg tablet Take 10 mg by mouth three times a day as needed. phenazopyridine (PYRIDIUM) 200 mg tablet Take 1 tablet by mouth three times a day as needed for pain for up to 2 days. 6 tablet 0 amoxicillin (AMOXIL) 875 mg tablet Take 1 tablet by mouth two times a day for 10 days. 20 tablet 0 No current facility-administered medications for this visit. Social History Tobacco Use Smoking status: Never Smokeless tobacco: Never Vaping Use Vaping Use: current everyday user Substance Use Topics Alcohol use: Yes Drug use: Not Currently Alcohol Use: Yes Tobacco Use: Never History reviewed. No pertinent family history. Review of Systems Constitutional: Positive for chills, fever and malaise/fatigue. HENT: Positive for congestion, sinus pain and sore throat. Respiratory: Positive for cough and sputum production. Genitourinary: Positive for dysuria, frequency and urgency. All other systems reviewed and are negative. BP 148/91 Pulse 99 Temp 97.7 Resp 20 SpO2 97% Physical Exam Vitals and nursing note reviewed. HENT: Head: Normocephalic. Right Ear: Tympanic membrane normal. Left Ear: Tympanic membrane normal. Nose: Congestion and rhinorrhea present. Mouth/Throat: Pharynx: Posterior oropharyngeal erythema present. Eyes: Extraocular Movements: Extraocular movements intact. Pupils: Pupils are equal, round, and reactive to light. Cardiovascular: Rate and Rhythm: Normal rate and regular rhythm. Pulses: Normal pulses. Heart sounds: Normal heart sounds. Pulmonary: Effort: Pulmonary effort is normal. Breath sounds: Normal breath sounds. Musculoskeletal: General: Normal range of motion. Cervical back: Normal range of motion. Skin: General: Skin is warm. Capillary Refill: Capillary refill takes 2 to 3 seconds. Neurological: General: No focal deficit present. Psychiatric: Mood and Affect: Mood normal. ASSESSMENT/PLAN: 1. Dysuria - ICD9: 788.1, ICD10: R30.0 (primary diagnosis) - URINALYSIS, DIPSTICK ONLY - PHENAZOPYRIDINE 200 MG TABLET - AMOXICILLIN 875 MG TABLET - URINE CULTURE 2. Sinobronchitis - ICD9: 473.9, 490, ICD10: J32.9, J40 Lilliam Shepherd documented in this encounter [facility] 06-08-2023 Telephone encounter Note Formatting of this note might be differe nt from the original. S: Patient spoke with [facility] nurse regarding UTI symptoms B: Onset of symptoms/concern: one day A: Pt reporting sharp urethral pain with urination and urgency, with trouble starting urinary stream. Urine has strong odor. Denies fever or abdominal pain. R: No available appts in [place] or [facility]. Pt declined POD scheduling in other practices. States that she will just go to today. Patient understands care advice. No further needs at this time. Patient instructed to call back with new or worsening symptoms. Reason for Disposition Urinating more frequently than usual (i.e., frequency) Protocols used: Urinary [id number] [facility] 06-08-2023 Miscellaneous Notes Formatting of this note might be differe nt from the original. S: Patient spoke with [facility] nurse regarding UTI symptoms B: Onset of symptoms/concern: one day A: Pt reporting sharp urethral pain with urination and urgency, with trouble starting urinary stream. Urine has strong odor. Denies fever or abdominal pain. R: No available appts in [place] or [facility]. Pt declined POD scheduling in other practices. States that she will just go to today. Patient understands care advice. No further needs at this time. Patient instructed to call back with new or worsening symptoms. Reason for Disposition Urinating more frequently than usual (i.e., frequency) Protocols used: Urinary [id number] documented in this encounter [facility] 06-01-2023 Note Denies SI/HI. Poorly controlled. Start sertraline 25 mg x 7 days, then increase to 50 mg daily. Hydroxyzine 10 mg every 8 hours as needed for anxiety. Counseling resources provided. recommend [facility] 06-01-2023 Note Poorly controlled. S tart sertraline 25 mg x 7 days, then increase to 50 mg daily. Hydroxyzine 10 mg every 8 hours as needed for anxiety. Counseling resources provided. recommend [facility] 06-01-2023 Evaluation + Plan note Associated Problem(s): Depression Denies SI/HI. Poorly controlled. Start sertraline 25 mg x 7 days, then increase to 50 mg daily. Hydroxyzine 10 mg every 8 hours as needed for anxiety. Counseling resources provided. recommend CBT [facility] 06-01-2023 Miscellaneous Notes Associated Problem(s): Depression Denies SI/HI. Poorly controlled. Start sertraline 25 mg x 7 days, then increase to 50 mg daily. Hydroxyzine 10 mg every 8 hours as needed for anxiety. Counseling resources provided. recommend CBT Associated Problem(s): Anxiety Poorly controlled. Start sertraline 25 mg x 7 days, then increase to 50 mg daily. Hydroxyzine 10 mg every 8 hours as needed for anxiety. Counseling resources provided. recommend CBT documented in this encounter [facility] 06-01-2023 Miscellaneous Notes Associated Problem(s): Depression Denies SI/HI. Poorly controlled. Start sertraline 25 mg x 7 days, then increase to 50 mg daily. Hydroxyzine 10 mg every 8 hours as needed for anxiety. Counseling resources provided. recommend CBT Associated Problem(s): Anxiety Poorly controlled. Start sertraline 25 mg x 7 days, then increase to 50 mg daily. Hydroxyzine 10 mg every 8 hours as needed for anxiety. Counseling resources provided. recommend CBT Addended by: SHAGGY WILSON on: 06/03/2023 05:38 PM Modules accepted: Level of Service documented in this encounter [facility] 06-01-2023 Evaluation + Plan note Associated Problem(s): Anxiety Poorly controlled. Start sertraline 25 mg x 7 days, then increase to 50 mg daily. Hydroxyzine 10 mg every 8 hours as needed for anxiety. Counseling resources provided. recommend CBT [facility] 06-01-2023 Note Addended by: SHAGGY VALDEZ on: 06/03/2023 05:38 PM Modules accepted: Level of Service [facility] 06-01-2023 History of Present illness Narrative Formatting of this note might be differe nt from the original. Patient was identified by name and Date of . Images from the original note were not included. 06/01/2023 Eric Roblero (: 1995) is a 27 y.o. female , Established patient, here for evaluation of the following chief complaint(s): Anxiety ASSESSMENT/PLAN: 1. Anxiety Assessment & Plan: Poorly controlled. Start sertraline 25 mg x 7 days, then increase to 50 mg daily. Hydroxyzine 10 mg every 8 hours as needed for anxiety. Counseling resources provided. recommend CBT Orders: - sertraline (Zoloft) 50 MG tablet; Take 1 tablet (50 mg) by mouth daily. Take 1/2 tablet daily x 7 days, then increase to 1 tab daily, Starting 06/01/2023, Until 07/31/2023, Normal - hydrOXYzine HCl (Atarax) 10 MG tablet; Take 1 tablet (10 mg) by mouth every 8 hours as needed for anxiety for up to 10 days., Starting Wed06/01/2023, Until Wed06/11/2023 at 2359, Normal 2. Depression, unspecified depression type Assessment & Plan: Denies SI/HI. Poorly controlled. Start sertraline 25 mg x 7 days, then increase to 50 mg daily. Hydroxyzine 10 mg every 8 hours as needed for anxiety. Counseling resources provided. recommend CBT Orders: - sertraline (Zoloft) 50 MG tablet; Take 1 tablet (50 mg) by mouth daily. Take 1/2 tablet daily x 7 days, then increase to 1 tab daily, Starting Wed06/01/2023, Until 07/31/2023, Normal Follow up in about 2 months (around 08/01/2023).for depression/anxiety. Schedule wellwoman w/ pap- follow up sooner if menses does not occur. SUBJECTIVE/OBJECTIVE: [facility] - Eric Roblero (: 1995) is a 27 y.o. female , Established patient, here for the evaluation of the following chief complaint(s): Anxiety Presents for anxiety. Previously on citalopram and was not helpful. [place] flat on it. Also on buspar in past but it caused nausea. lexapro also caused nausea. PHQ9 + 11, and Natan &- 17. Denies SI and HI. Reports home is going ok, boyfriend Luis Carlos is supportive and states it's probably the healthiest relationship she has ever been in. 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 Has not been in counseling as an adult. Prior to Admission medications Medication Sig Start Date End Date Taking? Authorizing Provider citalopram (CeleXA) 10 MG tablet Take 10 mg by mouth in the morning. 01/15/22 Historical Provider, norgestimate-ethinyl estradiol (Ortho-Cyclen) 0.25-35 MG-MCG tablet 11/09/17 Historical Provider, ondansetron (Zofran) 4 MG tablet Take 4 mg by mouth. 10/28/21 Historical Provider, Review of Systems Genitourinary: Positive for menstrual problem (missed menses by 2 weeks.home urine preg negative.). Neurological: Negative. Psychiatric/Behavioral: Positive for decreased concentration and dysphoric mood. Negative for agitation, self-injury and suicidal ideas. The patient is nervous/anxious. Vitals: 06/01/23 1405 BP: 115/81 Pulse: 86 Resp: 18 Temp: 36.5 C (97.7 F) TempSrc: Infrared SpO2: 98% Weight: (!) 318 lb (144 kg) Physical Exam Constitutional: General: She is not in acute distress. Appearance: Normal appearance. She is obese. She is not ill-appearing. Pulmonary: Effort: Pulmonary effort is normal. Neurological: Mental Status: She is alert and oriented to person, place, and time. Psychiatric: Mood and Affect: Mood normal. Behavior: Behavior normal. Thought Content: Thought content normal. Judgment: Judgment normal. An electronic signature was used to authenticate this note. MARINA Allred CNP 06/01/2023 4:21 PM documented in this encounter [facility] 06-01-2023 History of Present illness Narrative Formatting of this note might be differe nt from the original. Patient was identified by name and Date of . Images from the original note were not included. 06/01/2023 Eric Roblero (: 1995) is a 27 y.o. female , Established patient, here for evaluation of the following chief complaint(s): Anxiety ASSESSMENT/PLAN: 1. Anxiety Assessment & Plan: Poorly controlled. Start sertraline 25 mg x 7 days, then increase to 50 mg daily. Hydroxyzine 10 mg every 8 hours as needed for anxiety. Counseling resources provided. recommend CBT Orders: - sertraline (Zoloft) 50 MG tablet; Take 1 tablet (50 mg) by mouth daily. Take 1/2 tablet daily x 7 days, then increase to 1 tab daily, Starting 06/01/2023, Until 07/31/2023, Normal - hydrOXYzine HCl (Atarax) 10 MG tablet; Take 1 tablet (10 mg) by mouth every 8 hours as needed for anxiety for up to 10 days., Starting Wed06/01/2023, Until 06/11/2023 at 2359, Normal 2. Depression, unspecified depression type Assessment & Plan: Denies SI/HI. Poorly controlled. Start sertraline 25 mg x 7 days, then increase to 50 mg daily. Hydroxyzine 10 mg every 8 hours as needed for anxiety. Counseling resources provided. recommend CBT Orders: - sertraline (Zoloft) 50 MG tablet; Take 1 tablet (50 mg) by mouth daily. Take 1/2 tablet daily x 7 days, then increase to 1 tab daily, Starting Wed06/01/2023, Until 07/31/2023, Normal Follow up in about 2 months (around 08/01/2023).for depression/anxiety. Schedule wellwoman w/ pap- follow up sooner if menses does not occur. SUBJECTIVE/OBJECTIVE: [facility] - Eric Roblero (: 1995) is a 27 y.o. female , Established patient, here for the evaluation of the following chief complaint(s): Anxiety Presents for anxiety. Previously on citalopram and was not helpful. [place] flat on it. Also on buspar in past but it caused nausea. lexapro also caused nausea. PHQ9 + 11, and Natan &- 17. Denies SI and HI. Reports home is going ok, boyfriend Luis Carlos is supportive and states it's probably the healthiest relationship she has ever been in. 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 Has not been in counseling as an adult. Prior to Admission medications Medication Sig Start Date End Date Taking? Authorizing Provider citalopram (CeleXA) 10 MG tablet Take 10 mg by mouth in the morning. 01/15/22 Historical Provider, norgestimate-ethinyl estradiol (Ortho-Cyclen) 0.25-35 MG-MCG tablet 11/09/17 Historical Provider, ondansetron (Zofran) 4 MG tablet Take 4 mg by mouth. 10/28/21 Historical Provider, Review of Systems Genitourinary: Positive for menstrual problem (missed menses by 2 weeks.home urine preg negative.). Neurological: Negative. Psychiatric/Behavioral: Positive for decreased concentration and dysphoric mood. Negative for agitation, self-injury and suicidal ideas. The patient is nervous/anxious. Vitals: 06/01/23 1405 BP: 115/81 Pulse: 86 Resp: 18 Temp: 36.5 C (97.7 F) TempSrc: Infrared SpO2: 98% Weight: (!) 318 lb (144 kg) Physical Exam Constitutional: General: She is not in acute distress. Appearance: Normal appearance. She is obese. She is not ill-appearing. Pulmonary: Effort: Pulmonary effort is normal. Neurological: Mental Status: She is alert and oriented to person, place, and time. Psychiatric: Mood and Affect: Mood normal. Behavior: Behavior normal. Thought Content: Thought content normal. Judgment: Judgment normal. An electronic signature was used to authenticate this note. MARINA Allred CNP 06/01/2023 4:21 PM documented in this encounter [facility] 06-01-2023 Instructions MARINA Allred CNP - 06/01/2023 2:00 PM EDT Images from the original note were not included. If you or someone you know needs support now, call or text 133 or chat [email or web address] To find providers in your area for mental health services https://findtreatment.gov/ To find additional support and information regarding mental health services and substance abuse https://www.sama.gov/ Mental Health and Psychiatry Resources Counseling Family [address] [phone] [phone] [facility] [facility] [address], [place] [phone] [facility] (LGBTQIA+ inclusive) [phone] [place] [facility] [address] [facility] [place] [address] [facility] [facility] [place] [address] [email or web address] [facility] [place], [place] [phone] Psychiatry [facility] Psychiatry [facility] [phone] [employer] CORNELL Smith (commercial insurance only) Behavioral Health Services [facility] [phone] Counseling and Psychiatry [address], [place] [phone] [facility]: [phone] [facility]: [phone] [facility]: [phone] [facility], [address] [place] [address] (OPEN 08/03): [phone] [facility] Behavioral Health, Psychiatry and Traumatic Stress Center [facility] [address], [place] [address] [employer] [facility] Multiple locations in [place] Go to [employer] documented in this encounter [facility] 06-01-2023 Instructions MARINA Allred CNP - 06/01/2023 2:00 PM EDT Images from the original note were not included. If you or someone you know needs support now, call or text 530 or chat [email or web address] To find providers in your area for mental health services https://findtreatment.gov/ To find additional support and information regarding mental health services and substance abuse https://www.samhsa.gov/ Mental Health and Psychiatry Resources [facility] [address] [phone] [phone] [facility] [facility] [address] , [place] [phone] [facility] (LGBTQIA+ inclusive) [phone] [place] [facility] [address] [facility] [place] [address] [facility] [facility] [address] [place] [phone] [email or web address] Laura Cui [address] [phone] Psychiatry [facility] [phone] [employer] CORNELL Smith (commercial insurance only) Behavioral Health Services [facility] [phone] Counseling and Psychiatry [address], [place] [phone] [facility]: [phone] [facility]: [phone] [facility]: [phone] Psych[facility] Emergency Services, [address] [place], [place] [address]ron (OPEN 08/03): [phone] [facility] Behavioral Health, Psychiatry and Traumatic Stress Center [facility] [address], [address] [employer] Multiple locations in [place] Go to [employer] documented in this encounter [facility] 06-01-2023 Note Addended by: SHAGGY VALDEZ on: 06/03/2023 05:38 PM Modules accepted: Level of Service [facility] 05-26-2023 Telephone encounter Note Formatting of this note might be differe nt from the original. S: The patient is calling the [facility] about anxiety. B: This is not new - she was provided with medication that she stopped some time ago. A: She has periods of feeling very anxious that she stops to take deep breaths to calm down. She is never out of control. No drugs or alcohol; no suicidal or homicidal ideation. She is going to work and able to do her ADL without compromise. She is late on her period with negative urine tests. The anxiety pre-dated the late period. R: Appointment made, insurance verified and care advice reviewed. Reason for Disposition Symptoms interfere with work or school Protocols used: Anxiety and Panic [id number] [facility] 05-26-2023 Miscellaneous Notes Formatting of this note might be differe nt from the original. S: The patient is calling the [facility] about anxiety. B: This is not new - she was provided with medication that she stopped some time ago. A: She has periods of feeling very anxious that she stops to take deep breaths to calm down. She is never out of control. No drugs or alcohol; no suicidal or homicidal ideation. She is going to work and able to do her ADL without compromise. She is late on her period with negative urine tests. The anxiety pre-dated the late period. R: Appointment made, insurance verified and care advice reviewed. Reason for Disposition Symptoms interfere with work or school Protocols used: Anxiety and Panic [id number] documented in this encounter [facility] 09-27-2022 Note HNO ID: [id number] Author: Farzana Mccarty MD Service: ? Author Type: Physician Type: Progress Notes Filed: 09/27/2022 2:41 PM Note Text: Eric Roblero is a 27 year old female who presents with Cough (Congestion, wheezing x 2 weeks) 27-year-old female with 2-week history of a dry cough. Mild fatigue. States she can hear herself wheezing when she lays down. No history of asthma. She does vape. No wuri-xlx-[id number] medications used. Cough Associated symptoms include wheezing. Pertinent negatives include no chest pain, no chills, no ear pain, no headaches, no sore throat, no myalgias and no shortness of breath. History reviewed. No pertinent past medical history. There is no problem list on file for this patient. Current Outpatient Medications Medication Sig Dispense Refill benzonatate (TESSALON PERLES) 100 mg capsule Take 2 capsules by mouth three times daily as needed for cough. 30 capsule 0 No current facility-administered medications for this visit. Social History Tobacco Use Smoking status: Never Smokeless tobacco: Never Vaping Use Vaping Use: current everyday user Substance Use Topics Alcohol use: Yes Drug use: Not Currently Alcohol Use: Yes Tobacco Use: Never History reviewed. No pertinent family history. Review of Systems Constitutional: Positive for malaise/fatigue. Negative for chills and fever. HENT: Negative for ear pain and sore throat. Eyes: Negative for blurred vision. Respiratory: Positive for cough and wheezing. Negative for sputum production and shortness of breath. Cardiovascular: Negative for chest pain and palpitations. Gastrointestinal: Negative for abdominal pain and vomiting. Genitourinary: Negative for dysuria. Musculoskeletal: Negative for joint pain and myalgias. Skin: Negative for itching and rash. Neurological: Negative for focal weakness and headaches. Psychiatric/Behavioral: Negative for depression. All other systems reviewed and are negative. BP 132/89 Pulse 78 Temp 97.9 Resp 18 Wt 290 lb (131.5kg) SpO2 97% Physical Exam Vitals reviewed. Constitutional: General: She is not in acute distress. Appearance: Normal appearance. HENT: Head: Normocephalic and atraumatic. Right Ear: Tympanic membrane normal. Left Ear: Tympanic membrane normal. Nose: Nose normal. Mouth/Throat: Mouth: Mucous membranes are moist. Pharynx: Oropharynx is clear. Eyes: Extraocular Movements: Extraocular movements intact. Conjunctiva/sclera: Conjunctivae normal. Pupils: Pupils are equal, round, and reactive to light. Cardiovascular: Rate and Rhythm: Normal rate and regular rhythm. Pulmonary: Effort: Pulmonary effort is normal. No respiratory distress. Breath sounds: Normal breath sounds. No wheezing, rhonchi or rales. Musculoskeletal: General: Normal range of motion. Cervical back: Normal range of motion. Skin: General: Skin is warm and dry. Capillary Refill: Capillary refill takes less than 2 seconds. Neurological: General: No focal deficit present. Mental Status: She is alert. Psychiatric: Mood and Affect: Mood normal. ASSESSMENT/PLAN: 1. Subacute cough - ICD9: 786.2, ICD10: R05.2 (primary diagnosis) - BENZONATATE 100 MG CAPSULE 2. Viral upper respiratory tract infection - ICD9: 465.9, ICD10: J06.9 Increase fluids; Alternate tylenol and motrin as needed; Follow up with PCP or go to emergency room if symptoms worsen; Farzana Mccarty MD [facility] 01-13-2022 History of Present illness Narrative DATE OF SERVICE: 01/13/2022 REASON OF VISIT: Burning urination. HISTORY OF PRESENT ILLNESS: This is a 26-year-old female with burning urination for the last 2 days. Also has some frequency, but no fever, no chills. Mild back pain, but not very significant. She also has been exposed to sun yesterday and feels like having sunburn on her legs. No nausea, vomiting. REVIEW OF OTHER SYSTEMS: Normal. ALLERGIES: NKA. MEDICATIONS: 1. Celexa. 2. control. 3. AZO. PHYSICAL EXAMINATION: On examination, she is awake, alert, not in distress, no dyspnea. Temperature 97.9, blood pressure 137/71, pulse 82, respirations 18, pulse oximetry 97% on room air. Pain score 3/10. HEENT: Unremarkable. Chest: Clear to auscultate. Heart: Regular rate and rhythm. No severe tenderness. Exam of her skin: She has first-degree sunburn on extremities, trunk, neck, and face. [facility] PATIENT NAME: [facility] MEDICAL REC #: [id number] [place] [address] [facility] REPORT [facility]IC[facility] Urine dipstick was significantly positive for leukocyte esterase, also positive for nitrites. ASSESSMENT: 1. Urinary tract infection. 2. First-degree sunburn. PLAN: Clinical findings were discussed with the patient in detail. I prescribed her Macrobid 100 mg twice a day for 5 days with no refill. I will send the urine for culture. She should drink a lot of fluid. Regarding the sunburn, it appears to be first-degree, but she does not have any symptoms, so I instructed her to use gdji-kpr-rmmeaog skin moisturizing lotion and also discussed with her and explained to her the importance of using sunscreen when going out into the sun, especially in summer. Patient understood and agreed. Ross Novoa MD [id number] SSI File#: [id number] [facility] PATIENT NAME: [facility]IC [facility]BLERO [facility] MEDICAL REC #: [id number] [place] [address] [facility] REPORT [facility]YSICIAN END OF DOCUMENT / CHANGE LOG FOLLOWS Last Edited By Elec. Signed By Ross Novoa MD #[id number] Ross Novoa MD #[id number] on 01/13/2022 16:38 ET on 01/13/2022 16:38 ET Revision Number - 2 Verified/Reviewed by 01/13/22 1638 LYN [facility] PATIENT NAME: ERIC ROBLERO [address] [facility] [address] MEDICAL REC #: [id number] [place] [address] [facility] REPORT [facility] PHYSICIAN documented in this encounter [facility] Diagnosis Anxiety- Primary Anxiety state, unspecified Depression, unspecified depression type [facility]* Diagnosis Dysuria- Primary Sinobronchitis Unspecified sinusitis (chronic) [facility] Diagnosis Mild episode of recurrent major depressive disorder (HCC)- Primary Anxiety Anxiety state, unspecified documented [facility]* Diagnosis Well female exam with routine gynecological exam- Primary Routine gynecological examination Morbid obesity with BMI of 45.0-49.9, adult (HCC) History of gestational diabetes Personal history of other genital system and obstetric disorders Encounter for Papanicolaou smear for cervical cancer screening Bacterial vaginosis Unspecified vaginitis and vulvovaginitis Screening for diabetes mellitus Screening for lipoid disorders Screening for deficiency anemia Screening for other and unspecified deficiency anemia Screening for HIV (human immunodeficiency virus) Special screening examination for other specified viral diseases Need for hepatitis C screening test Special screening examination for other specified viral diseases [facility] Attachments The following attachments cannot be sent through Care Everywhere. * Cervical Cancer Screening Tests (Kazakh) [facility] Family History No Family History Records FoundNo Family History Records FoundNo Family History Records FoundNo Family History Records FoundNo Family History Records Found Advance Directives No Advanced Directives Records FoundNo Advanced Directives Records FoundNo Advanced Directives Records FoundNo Advanced Directives Records FoundNo Advanced Directives Records Found Additional Source Comments INFORMATION SOURCE (unrecogn ized section and content) DATE CREATED AUTHOR AUTHOR'S ORGANIZ ATION 03/05/2020 [facility] DATE CREATED AUTHOR AUTHOR'S ORGANIZ ATION 01/15/2022 [facility] DATE CREATED AUTHOR AUTHOR'S ORGANIZ ATION 06/10/2023 [facility] DATE CREATED AUTHOR AUTHOR'S ORGANIZ ATION 08/05/2023 [facility] Source Comments (unrecognize d section and content) In the event this informatio n is protected by the Federal Confidentiality of Alcohol and Drug Abuse Patient Records regulations: The Federal rules restrict any use of the information to criminally investigate or prosecute any alcohol or drug abuse patient.[facility] the event this information is protected by the Federal Confidentiality of Alcohol and Drug Abuse Patient Records regulations: The Federal rules restrict any use of the information to criminally investigate or prosecute any alcohol or drug abuse patient.[facility] the event this information is protected by the Federal Confidentiality of Alcohol and Drug Abuse Patient Records regulations: The Federal rules restrict any use of the information to criminally investigate or prosecute any alcohol or drug abuse patient.[facility] Reason for Visit (unrecogniz ed section and content) Reason Comments Anxiety Reason Comments UTI Painful urination, f requency this am Reason Onset Date Comments urinary symptoms 06/08/2023 Reason Comments Depression Anxiety 8 week follow up Health Maintenance HIV Screening-agrees MMR Vaccines-done in schoolVaricella Vaccines-had chicken pox as a childHepatitis B Vaccines- declinesHepatitis C Screening-agreesInfluenza Vaccine-already had this at work around 06/21/23COVID- Vaccine #3-only had 2 Blood Work Reason Comments Annual Exam Gynecologic Exam Health Maintenance HIV Screening-agrees MMR Vaccines-done in schoolVaricella Vaccines-had chicken pox as a childHepatitis B Vaccines-declinesHepatitis C Screening-agreesInfluenza Vaccine-done at work around 06/21/23COVID- Vaccine #3-only 2 Blood Work Care Teams (unrecognized sec tion and content) 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 Start Date End Date Milli Pierce MD [address] [place] [id number] PCP - General 12/01/17 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 Start Date End Date Milli Pierce MD [address] [place] [id number] PCP - General 12/01/17 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 This clinical summary was aggregated from multiple sources. Caution should be exercised in using it in the provision of clinical care. This summary normalizes information from multiple sources, and as a consequence, information in this document may materially change the coding, format and clinical context of patient data. In addition, data may be omitted in some cases. CLINICAL DECISIONS SHOULD BE BASED ON THE PRIMARY CLINICAL RECORDS. [employer] [facility]. provides no warranty or guarantee of the accuracy or completeness of information in this document.
[2023-08-14 13:43] LABS: Internal QC Validated? YES +Cl - CLEAR BKGD; Pregnancy, Urine Negative Negative; Record Kit Lot#,Urine Preg 667200; Red Blood Cells-Urine > 100 SEEN /hpf (0-5)
== END 2023-08-14 13:57 | disposition home or self-care (01) ==
PROVIDERS: Physician Assistant; Emergency Provider Emergency Medicine; PCP Registered Nurse; Visit Provider Emergency Medicine
DX: N93.8 Other specified abnormal uterine and vaginal bleeding (principal); S30.814A Abrasion of vagina and vulva, initial encounter; X58.XXXA Exposure to other specified factors, initial encounter; R30.9 Painful micturition, unspecified
CPT/HCPCS: 81001; 81025; 99282